=== PATIENT | female | born 1975 | race Asian ===

== ENCOUNTER 2017-07-28 13:28 | Emergency (ER) | payer BC ==
[~2017-07-28] VITALS: Ht 149.9 cm; Wt 59.0 kg
[2017-07-28 13:41] VITALS: Ht 149.9 cm; Wt 59.0 kg
[2017-07-28] MEDS ORDERED: HYDROCODONE/APAP (5/325) TAB PO ONE (16:30)
--- NOTE | 2017-07-28 16:54 | ERD ---
ER Documentation Chief Complaint Chief Complaint LT SIDE HEADACHE RADIATING TO NECK HPI This is a 41-year-old female who presents to the emergency department today complaining of pain on the left side of her head and behind her left eye. States she has had this for the past 2 days. States she has not taken any medication. States she did not call her primary care doctor missed her last appointment. States she does have some light sensitivity. Denies any vomiting , dizziness, blurred vision, fevers or chills. ROS All systems reviewed and are negative except as per history of present illness. Medications Home Meds Active Scripts Meclizine Hcl* (Antivert*) 12.5 Mg Tab, 12.5 MG PO Q6H Y for DIZZINESS, #20 TAB Prov:NATALYA NAIR PA-C 07/28/17 Ondansetron Hcl* (Zofran*) 4 Mg Tablet, 4 MG PO Q6H for NAUSEA AND/OR VOMITING, #30 TAB Prov:NATALYA NAIR PA-C 07/28/17 Acetamin/Butalbital/Caffeine* (Fioricet*) [id number] Tab, 1 TAB PO Q6H Y for PAIN, #30 TAB Prov:NATALYA NAIR PA-C 07/28/17 Allergies Allergies: Coded Allergies: No Known Allergies (Unverified Allergy, Unknown, 07/28/17) topiramate (Verified Adverse Reaction, Intermediate, 07/28/17) PMhx/Soc History of Surgery: No Anesthesia Reaction: No Hx Neurological Disorder: Yes (VERTIGO) Hx Respiratory Disorders: No Hx Cardiac Disorders: No Hx Psychiatric Problems: No Hx Miscellaneous Medical Probl: No Hx Alcohol Use: No Hx Substance Use: No Hx Tobacco Use: No Smoking Status: Former smoker Physical Exam Vitals Vital Signs Date Time Temp Pulse Resp B/P Pulse Ox O2 Delivery O2 Flow Rate FiO2 07/28/17 13:41 98.9 98 18 130/68 98 Physical Exam Const: NAD Head: Atraumatic Eyes: Normal Conjunctiva. PERRLA, EOM intact, left eye light sensitivity ENT: Normal External Ears, Nose and Mouth. Neck: Full range of motion..~ No meningismus. Resp: Clear to auscultation bilaterally Cardio: Regular rate and rhythm, no murmurs Abd: Soft, non tender, non distended. Normal bowel sounds Skin: No petechiae or rashes Back: No midline or flank tenderness Ext: No cyanosis, or edema Neur: Awake and alert cranial nerves II through XII intact. No gait ataxia. Psych: Normal Mood and Affect Results 24 hrs Laboratory Tests Test 07/28/17 16:35 Urine Color YELLOW Urine Clarity CLEAR Urine pH 6.0 Urine Specific [place] 1.010 Urine Ketones TRACEmg/dL Urine Nitrite NEGATIVEmg/dL Urine Bilirubin NEGATIVEmg/dL Urine Urobilinogen NEGATIVEmg/dL Urine Leukocyte Esterase NEGATIVELeu/ul Urine Hemoglobin NEGATIVEmg/dL Urine Glucose NEGATIVEmg/dL Urine Total Protein NEGATIVEmg/dl Current Medications Medications (Trade) Dose Ordered Sig/Yagn Route PRN Reason Start Time Stop Time Status Last Admin Dose Admin Acetaminophen/ Hydrocodone Bitart ([place] (5/325)) 1 tab ONCE ONCE PO 07/28/17 16:30 07/28/17 16:31 DC 07/28/17 16:39 Ondansetron HCl (Zofran Tab) 4 mg ONCE ONCE PO 07/28/17 18:30 07/28/17 18:30 DC Ondansetron HCl (Zofran Odt) 4 mg ONCE STAT ODT 07/28/17 18:09 07/28/17 18:12 DC 07/28/17 18:19 Meclizine HCl (Antivert) 25 mg ONCE ONCE PO 07/28/17 19:00 07/28/17 19:01 DC 07/28/17 19:04 Ketorolac Tromethamine (Toradol) 30 mg ONCE STAT IM 07/28/17 18:58 07/28/17 18:59 DC 07/28/17 19:03 DIAGNOSTIC IMAGING REPORT Patient: CECY GARDINER : 1975 Age: 41 Sex: F MR #: [id number] DOS: 07/28/17 0000 Ordering MD: NATALYA NAIR PA-C Location: [facility] Room/Bed: PROCEDURE: CT head CLINICAL INDICATION: Headaches TECHNIQUE: Contiguous 2.5 mm axial images were obtained from the vertex to the skull base. No intravenous contrast was administered. The calculated dose length product (DLP) = 720.23 mGy-cm. The CTDlvol = 45.01 mGy. One or more of the following dose reduction techniques were used: Automated exposure control , adjustment of the mA and or KV according to patient size, or use of iterative reconstruction technique. COMPARISON: None FINDINGS: There is no evidence of acute intracranial hemorrhage or acute territorial infarct. No mass or mass effect is seen on this noncontrast study. The ventricles and cisterns are normal in size and configuration. The wetzel-white matter differentiation is within normal limits. The visualized paranasal sinuses are normally aerated. The bony calvarium is unremarkable IMPRESSION: Unremarkable unenhanced CT of the brain RPTAT: HH .Andrez Maynard MD, MD Date Time Electronically viewed and signed by .Andrez Maynard MD, on 07/28/2017 18:20 .W/ CC: NATALYA NAIR PA-C Procedures/[facility] This is a 41-year-old female who presents the emergency department today complaining of left-sided headache and light sensitivity for the past 2 days. States that the headache does go back down towards the left side of her neck. I noticed that patient had an allergy to Topamax and I asked the patient if she had a history of migraines and she did admit that she does have a history of migraines and vertigo. I asked her if she took any medication for it and she said that she has taken medication in the past when she is gotten and headache but she did not take any this time. She is unsure of the name of the medication. States she missed her last doctor's appointment. I questioned further as to whether patient's headache was the same as it always is when she gets a migraine and she was unable to tell me that it was the same or distinguish this in character. Given this I did obtain a head CT scan on the patient given her complaints of left-sided headache and pain in the back of her neck and eye. Upon review of patient's medical record she has not been seen in this emergency department since 2013 and has never had a head CT scan. Head CT noncontrast is unremarkable. There is no evidence of acute intracranial hemorrhage or territorial infarct. There is no mass effect. UA is negative for infection test is negative Patient was given [place] here in the emergency department patient reported that she felt nauseated and was therefore given Zofran. When I went back to check on the patient she indicated that she was dizzy. She was therefore given meclizine. She did indicate that her headache was better but she still had some pain and was therefore given Toradol. Patient was requesting to go home. Patient does have a history of migraines and vertigo. This is likely an acute exacerbation and her symptoms at this time is consistent with migraine versus tension type headache. Low suspicion for acute hemorrhage, mass, abscess, meningitis. Patient is afebrile and otherwise well-appearing. Patient was given a prescription for Fioricet, Zofran and meclizine for home. At this time the patient is stable for discharge and outpatient management. Patient should follow up with their PCP in the next 1-2 days. They may return to the emergency department sooner for any persistent or worsening of symptoms. Patient and understood and agreed with the plan. Discussed the patient with Dr. Colvin and she is in agreement with the plan. Departure Diagnosis: Primary Impression: Headache Headache type: unspecified Headache chronicity pattern: episodic headache Intractability: not intractable Qualified Code: R51 - Nonintractable episodic headache, unspecified headache type Additional Impression: Vertigo Condition: Fair NATALYA NAIR PA-C Jul 28, 2017 16:54
[2017-07-28 16:57] LABS: ADD UMIC NO; UR ASCORBIC ACID 40 mg/dL (NEGATIVE); UR BILIRUBIN (Dip) NEGATIVE (NEGATIVE); UR BLOOD (Dip) NEGATIVE (NEGATIVE); UR CLARITY CLEAR (CLEAR); UR COLOR YELLOW (YELLOW); UR GLUCOSE (Dip) NEGATIVE (NEGATIVE); UR KETONES (Dip) TRACE mg/dL (NEGATIVE); UR LEUKOCYTE ESTERASE (Dip) NEGATIVE Leu/ul (NEGATIVE); UR NITRITE (Dip) NEGATIVE (NEGATIVE); UR TOTAL PROTEIN (Dip) NEGATIVE (NEGATIVE); UR UROBILINOGEN (Dip) NEGATIVE (NEGATIVE)
[2017-07-28] MEDS ORDERED: ONDANSETRON (ODT) 4 MG TAB ODT STA (18:09)
--- NOTE | 2017-07-28 18:21 | RADRPT ---
PROCEDURE: CT head CLINICAL INDICATION: Headaches TECHNIQUE: Contiguous 2.5 mm axial images were obtained from the vertex to the skull base. No int ravenous contrast was administered. The calculated dose length product (DLP) = 720.23 mGy-cm. The CTDlvol = 45.01 mGy. One or more of the following dose reduction techniques were used: Automated e xposure control, adjustment of the mA and or KV according to patient size, or use of iterative recon struction technique. COMPARISON: None FINDINGS: There is no evidence of acute intracranial hemorrhage or acute territorial infarct. No mass or mass effect is seen on this noncontrast study. The ventricles and cisterns are normal in size and confi guration. The wetzel-white matter differentiation is within normal limits. The visualized paranasal sinuses are normally aerated. The bony calvarium is unremarkable IMPRESSION: Unremarkable unenhanced CT of the brain RPTAT: HH .Andrez Maynard MD, Date Time Electronically viewed and signed by .Andrez Maynard MD, MD on 07/28/2017 18:20 .W/
[2017-07-28] MEDS ORDERED: ONDANSETRON 4 MG TAB PO ONE (18:30)
[2017-07-28] MEDS ORDERED: KETOROLAC 30 MG INJ IM STA (18:58)
[2017-07-28] MEDS ORDERED: MECLIZINE 12.5 MG TAB PO ONE (19:00)
[2017-07-28] MEDS ORDERED: FIORICET PO (19:34)
[2017-07-28] MEDS ORDERED: ONDA4TAB8 PO (19:34)
[2017-07-28] MEDS ORDERED: MECL12.574 PO (19:35)
[2017-07-28 19:51] VITALS: BP 123/75; PULSE 78; RESP 16; TEMP 97.5
== END 2017-07-28 19:52 | disposition home or self-care (01) ==
LOC: FTE 13:28
DX: R51 Headache (principal); R42 Dizziness and giddiness; Z87.891 Personal history of nicotine dependence
CPT/HCPCS: 70450; 81003; 96372; 99285; J1885